=== PATIENT | male | born 1990 | race African-American/Black ===

== ENCOUNTER 2019-02-11 16:38 | Emergency (ER) | payer OTHER ==
[~2019-02-11] VITALS: Ht 170.2 cm; Wt 70.4 kg
--- NOTE | 2019-02-11 19:00 | REP ---
RIGHT HAND, FOUR VIEWS: Four views of the right hand are performed. No acute fracture is seen of the visualized osseous structures. There is mild subluxation medially at the first metacarpal phalangeal joint. I suspect a ligamentous tear at this location. Electronically Signed by Akil Ogden MD 02/13/2019 09:39 A
[2019-02-11 21:10] VITALS: BP 128/86
== END 2019-02-11 21:00 | disposition home or self-care (01) ==
LOC: M ED 16:38
DX: S63.111A Subluxation of metacarpophalangeal joint of right thumb, initial encounter (principal); X58.XXXA Exposure to other specified factors, initial encounter; Y92.89 Other specified places as the place of occurrence of the external cause; Y99.0 Civilian activity done for income or pay

== ENCOUNTER 2019-10-07 12:18 | Emergency (ER) | payer OTHER ==
[~2019-10-07] VITALS: Ht 170.2 cm; Wt 68.2 kg
[2019-10-07] MEDS ORDERED: [UNRECOGNIZED DRUG - REMARK] (12:24)
[2019-10-07] MEDS ORDERED: NORCO, ANEXSIA 5/325MG TABLET (HYDROcodone/ACETAMINOPHEN) PO ONE (13:15)
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
[2019-10-07] MEDS ORDERED: NORC1TAB7 PO (14:21)
[2019-10-07 14:25] VITALS: BP 161/97
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
== END 2019-10-07 14:26 | disposition home or self-care (01) ==
LOC: M ED 12:18
DX: S42.101A Fracture of unspecified part of scapula, right shoulder, initial encounter for closed fracture (principal); W19.XXXA Unspecified fall, initial encounter; Y92.008 Other place in unspecified non-institutional (private) residence as the place of occurrence of the external cause; Z77.098 Contact with and (suspected) exposure to other hazardous, chiefly nonmedicinal, chemicals

== ENCOUNTER 2020-01-04 19:43 | Emergency (ER) | payer OTHER ==
[~2020-01-04] VITALS: Ht 170.2 cm; Wt 68.2 kg
[~2020-01-04 19:43] MED LIST: NORC1TAB7 PO; [UNRECOGNIZED DRUG - REMARK]
[2020-01-04] MEDS ORDERED: NS 1,000 ML IV ONE (20:00)
[2020-01-04] MEDS ORDERED: ISOVUE-370 76% 100ML VIAL As Ordered ONE (20:14)
[2020-01-04 20:19] LABS: BASO % 0.4 % (0.0-1.0); EOS % 0.4 % (0.0-3.0); HEMATOCRIT 49.4 % (42.0-52.0); HEMOGLOBIN 16.2 g/dl (13.5-17.5); LYMPH # 1.6 10^3/uL (1.5-5.0); LYMPH % 34.8 % (24.0-44.0); MEAN CORPUSCULAR HEMOGLOBIN 29.9 pg (27.0-33.0); MEAN CORPUSCULAR HGB CONC 32.8 g/dl (32.0-36.5); MEAN CORPUSCULAR VOLUME 91.1 fl (80.0-96.0); MONO # 0.4 10^3/uL (0.0-0.8); MONO % 8.8 % (0.0-5.0); NEUTROPHILS # 2.6 10^3/uL (1.5-8.5); NEUTROPHILS % 55.2 % (36.0-66.0); PLATELET COUNT, AUTOMATED 158 10^3/uL (150-450); RED BLOOD COUNT 5.42 10^6/uL (4.30-6.10); WHITE BLOOD COUNT 4.7 10^3/uL (4.0-10.0)
[2020-01-04 20:30] LABS: INR 0.88; PROTHROMBIN TIME 12.2 SECONDS (11.8-14.0)
[2020-01-04 20:31] LABS: PARTIAL THROMBOPLASTIN TIME 22.6 SECONDS (25.0-38.4)
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
[2020-01-04 20:51] LABS: ALBUMIN 4.1 GM/DL (3.2-5.2); ALT/SGPT 28 U/L (12-78); BILIRUBIN,DIRECT 0.1 MG/DL (0.0-0.2); BILIRUBIN,TOTAL 0.3 MG/DL (0.2-1.0); CK-MB VALUE MASS 1.1 NG/ML (<3.6); CPK CREATINE PHOSPHOKINASE 439 U/L (39-308); ETHYL ALCOHOL (ETHANOL) 0.283 % (0.000-0.010); LIPASE 208 U/L (73-393); MB/CK RELATIVE INDEX 0.25 (< OR =4); TOTAL PROTEIN 8.1 GM/DL (6.4-8.2); TROPONIN I < 0.02 NG/ML (< 0.10)
[2020-01-04 20:52] LABS: AMPHETAMINES LEVEL URINE NEGATIVE (NEGATIVE); BARBITURATES URINE NEGATIVE (NEGATIVE); BENZODIAZEPINES URINE NEGATIVE (NEGATIVE); CANNABINOIDS URINE NEGATIVE (NEGATIVE); COCAINE METABOLITE URINE NEGATIVE (NEGATIVE); METHADONE URINE NEGATIVE (NEGATIVE); OPIATES URINE NEGATIVE (NEGATIVE); PHENCYCLIDINE URINE NEGATIVE (NEGATIVE)
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
[2020-01-04 21:04] VITALS: BP 150/79
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
--- NOTE | 2020-01-08 21:12 | ECGEPIP ---
[facility] - ED Test Date: 2020-01-04 Pat Name: MAGDALENE PENNINGTON Department: Room: - Gender: Male [employer]: : 1990 Requested By: DANITZA Knight Order Number: [id number] Reading MD: Lissett Harris Measurements Intervals [place] Rate: 78 P: 82 AL: 153 QRS: 74 QRSD: 105 T: 34 QT: 352 QTc: 403 Interpretive Statements SINUS RHYTHM WITH SINUS ARRHYTHMIA SEE SCANNED DOWNTIME REPORT
== END 2020-01-04 21:56 | disposition left against medical advice (07) ==
LOC: M ED 19:43
DX: S42.101A Fracture of unspecified part of scapula, right shoulder, initial encounter for closed fracture (principal); V49.49XA Driver injured in collision with other motor vehicles in traffic accident, initial encounter; Y92.410 Unspecified street and highway as the place of occurrence of the external cause; F10.229 Alcohol dependence with intoxication, unspecified; R79.89 Other specified abnormal findings of blood chemistry; Z77.098 Contact with and (suspected) exposure to other hazardous, chiefly nonmedicinal, chemicals
CPT/HCPCS: 70450; 71260; 72125; 74177; 80047; 80076; 80307; 81001; 82550; 82553; 83605; 83690; 84484; 85025; 85610; 85730; 86850; 86900; 86901; 93005; 93041; 96360; 99284; G0480; Q9967